=== PATIENT | female | born 1985 | race Asian ===

== ENCOUNTER 2018-08-24 00:45 | Inpatient (IN) | payer OTHER ==
[2018-08-24] MEDS ORDERED: AMPICILLIN - 2 GM in SODIUM CHLORIDE 100 ML IVPB ONE (02:00)
[2018-08-24 02:09] LABS: BASO % 0.5 % (0-2.0); EOS % 3.4 % (0-4.5); HEMATOCRIT 37.8 % (32.4-45.2); HEMOGLOBIN 12.6 GM/dL (10.7-15.3); LYMPH % 18.4 % (8-40); MCH 30.2 pg (25.7-33.7); MCHC 33.3 g/dl (32.0-36.0); MEAN CELL VOLUME 90.7 fl (80-96); MEAN PLT VOLUME 7.7 fl (7.5-11.1); MONO % 6.9 % (3.8-10.2); NEUT % 70.8 % (42.8-82.8); PLATELET COUNT 209 K/MM3 (134-434); RBC 4.17 M/mm3 (3.60-5.2); WHITE BLOOD COUNT 7.9 K/mm3 (4.0-10.0)
[2018-08-24 02:23] LABS: INR 1.04 (0.83-1.09); PROTHROMBIN TIME (PATIENT) 12.3 SEC (9.7-13.0)
[2018-08-24 02:26] LABS: ACTIVATED PTT 27.9 SECONDS (25.2-36.5)
[2018-08-24 02:29] LABS: CALCIUM 8.6 mg/dL (8.5-10.1); CREATININE 0.6 mg/dL (0.55-1.3); POTASSIUM 3.6 mmol/L (3.5-5.1)
[2018-08-24] MEDS ORDERED: TUBERCULIN PPD 5 TU/0.1ML SYRINGE (IN PATIENT USE ONLY) ID ONE (02:45)
[2018-08-24] MEDS ORDERED: DEXTROSE 5%-LACTATED RINGERS 1,000 ML IV SCH ×2 (02:45→06:45)
[2018-08-24 02:46] VITALS: BMI 25.0
[2018-08-24] MEDS ORDERED: AMPICILLIN SODIUM 2 GM VIAL ONE (02:48)
[2018-08-24] MEDS: AMPICILLIN - 1 GM in SODIUM CHLORIDE 100 ML IVPB SCH ×4 (06:20→17:30)
[2018-08-24] MEDS ORDERED: AMPICILLIN SODIUM 1 GM VIAL ONE ×4 (06:28→17:38)
[2018-08-24] MEDS ORDERED: BENZOCAINE 28 GM HEMORRHOIDAL OINTMENT TP PRN ×2 (06:37→18:16)
[2018-08-24] MEDS ORDERED: BENZOCAINE 20% 57 GM BOTTLE TP PRN ×2 (06:37→18:16)
[2018-08-24] MEDS ORDERED: BISACODYL 10 MG SUPP.RECT RC PRN ×2 (06:37→18:16)
[2018-08-24] MEDS ORDERED: WITCH HAZEL 50% (TUCKS) 40 PAD/JAR PAD TP PRN ×2 (06:37→18:16)
[2018-08-24] MEDS ORDERED: METHYLERGONOVINE MALEATE 0.2 MG/1 ML AMP IM PRN (06:37)
[2018-08-24] MEDS ORDERED: OXYTOCIN 20 UNITS in 0.9% NS 20 UNIT/1,000 ML INFUS.BAG IV SCH ×2 (06:45→18:30)
--- NOTE | 2018-08-24 06:50 | HP ---
Admitting History and Physical - Admission Chief Complaint: srom History of Present Illness: 33 y/o P1 at term comes with srom about 1230 am--has irregular contractions. She is gbs neg and pt of [facility]. 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: Alzheimer's, CVA, Dementia, Migraine, Multiple Sclerosis, Peripheral Neuropathy, Parkinson's, Seizure, Syncope, TIA, Vertigo, Other Cardiovascular: No: AFIB, Aneurysm, Aortic Insufficiency, Aortic Stenosis, CAD, CHF, Deep Vein Thrombosis, HTN, Hyperlipdemia, [place], Mitral Insufficiency, Mitral Stenosis, Murmur, Pulmonary Hypertension, Other Pulmonary: No: Asthma, Bronchitis, Cancer, COPD, O2 Dependent, Pneumonia, Previously Intubated, Pulmonary Embolus, Pulmonary Fibrosis, Sleep Apnea, Other Gastrointestinal: No: Ascites, Cancer, Constipation, Crohn's Disease, Diverticulitis, Diverticulosis, Esophageal Varices, Gastritis, GERD, GI Bleed, Hemorrhoids, Hiatal Hernia, Inflamatory Bowel Disease, Irritable Bowel Disease, Pancreatitis, Peptic Ulcer Disease, Ulcerative Colitis, Other Hepatobiliary: No: Cirrhosis, Cholelithiasis, Cholecystitis, Choledocholithiasis , Hepatitis A, Hepatitis B, Hepatitis C, Other Renal/: No: Renal Failure, Renal Inusuff, BPH, Cancer, Hematuria, Hemodialysis , Neurogenic Bladder, Renal Calculi, UTI, Other Reproductive: No: Ectopic , Endometriosis, Fibroids, PID, Polycystic Ovary Syndrome, Postmenopausal, Other ...: 2 ...Para: 1 Heme/Onc: Yes: Anemia, B12 Deficiency, Bleeding Disorder, Cancer, Current Chemotherapy, Current Radiation Therapy, Hemochromatosis, Hypercoaguable State, Myeloproliferative Synd, Sickle Cell Disease, Sickle Cell Trait, Thrombocytopenia, Other Infectious Disease: No: AIDS, C-Diff, Herpes Zoster, HIV, MRSA, STD's, Tuberculosis, VREF, Other Musculoskeletal: No: Bursitis, Chronic low back pain, Hemiparesis, Hemiplegia, Osteoarthritis, Paraplegia, Other - Smoking History Smoking history: Never smoked Have you smoked in the past 12 months: No - Alcohol/Substance Use Hx Alcohol Use: No Home Medications - Allergies Allergies/Adverse Reactions: Allergies Allergy/AdvReac Type Severity Reaction Status Date / Time No Known Allergies Allergy Verified 06/04/15 11:04 - Home Medications Home Medications: Ambulatory Orders Vitamins (Sjr) - 1 tab PO DAILY 08/30/14 Review of Systems - Review of Systems Constitutional: reports: No Symptoms Eyes: reports: No Symptoms HENT: reports: No Symptoms Neck: reports: No Symptoms Cardiovascular: reports: No Symptoms Respiratory: reports: No Symptoms Gastrointestinal: reports: No Symptoms Genitourinary: reports: No Symptoms Breasts: reports: No Symptoms Reported Musculoskeletal: reports: No Symptoms Integumentary: reports: No Symptoms Neurological: reports: No Symptoms Endocrine: reports: No Symptoms Physical Examination Vital Signs: Vital Signs Temperature 98.0 F 08/24/18 04:00 Pulse Rate 88 08/24/18 04:00 Respiratory Rate 20 08/24/18 04:00 Blood Pressure 105/58 L 08/24/18 04:00 O2 Sat by Pulse Oximetry (%) Eyes: Yes: WNL HENT: Yes: WNL Neck: Yes: WNL Cardiovascular: Yes: WNL Respiratory: Yes: WNL Gastrointestinal: Yes: WNL ...Rectal Exam: Yes: WNL Renal/: Yes: WNL Breast(s): Yes: WNL Musculoskeletal: Yes: WNL Labs: CBC, BMP 08/24/18 01:30 08/24/18 01:30 Assessment/Plan as above admit labs 5cm/-3 cat 1
[2018-08-24] MEDS ORDERED: OXYTOCIN 30 UNITS in 0.9% NS 30 UNIT/500 ML INFUS.BAG IVPB ONE (09:09)
[2018-08-24] MEDS ORDERED: OXYTOCIN 30 UNITS in 0.9% NS 30 UNIT/500 ML INFUS.BAG IVPB SCH (09:15)
--- NOTE | 2018-08-24 09:16 | PN ---
Ante-Partal Exam - Subjective Subjective: Patient evaluated for progression of labor. Grossly ruptured as per admitting provider. summary reviewed and informed consent obtained Vital Signs: Vital Signs Temperature 98.0 F 08/24/18 08:00 Pulse Rate 86 08/24/18 08:00 Respiratory Rate 18 08/24/18 08:00 Blood Pressure 102/60 08/24/18 08:00 O2 Sat by Pulse Oximetry (%) Bleeding: No Headache: No Visual changes: No Right upper quadrant pain: No - Contractions Contractions: Yes Regularity: Irregular Intensity: Mild Monitor Mode: External - Exam during Labor Heart Rate: 145 (recative) Category: I Monitor Accelerations: Present Monitor Decelerations: None Exam: Vaginal Dilatation (cm): 5 Effacement (%): 60 Amniotic Membrane Status: Ruptured (palpable membranes) Station: -3 Remarks: sutures palpated, asynclitic - Assessment/Plan Assessment/Plan: 33 y/o 40.5wks, PROM as per admission, GBS positive on abx prophylaxis, FHT reactive, late transfer of care, stable maternal status, Documentation reviewed, EFW [id number]. -Start pitocin -Re-evaluate once adequate contractions pattern
[2018-08-24] MEDS ORDERED: FENTANYL/BUPIVACAINE/NS/PF - PCEA - 50 ML DISP.SYRIN EP ONE (11:29)
[2018-08-24] MEDS ORDERED: LIDOCAINE HCL 1% PRESERVATIVE FREE - 30ML VIAL ONE (12:27)
[2018-08-24] MEDS ORDERED: OXYTOCIN 20 UNITS in 0.9% NS 20 UNIT/1,000 ML INFUS.BAG IV ONE ×2 (12:28→20:06)
[2018-08-24] MEDS ORDERED: ELECTROLYTE-148 SOLN 1,000 ML IV SCH (12:30)
[2018-08-24] MEDS ORDERED: FENTANYL/BUPIVACAINE/NS/PF - PCEA - 50 ML DISP.SYRIN EP SCH ×3 (13:15→15:15)
--- NOTE | 2018-08-24 16:15 | PN ---
Progress Note, Labor Vaginal Exam #2 Labor Exam Date: 08/24/18 Heart Rate (range): Cat II, intermittent late decelerations, improved Dilatation: 10 Effacement (%): 100 Amniotic Membrane Status: Ruptured Presentation: Vertex/Position Station: 0 Remarks: D/C pitocin, FHT improved to Cat I with discontinuation Oxygen, repositioning Labor down and reassess in one hour as she does not feel any pressure Ira Almonte MD
[2018-08-24] MEDS ORDERED: IBUPROFEN 600 MG TABLET (FP) PO PRN (18:16)
[2018-08-24] MEDS ORDERED: ACETAMINOPHEN 325 MG TABLET (FP) PO PRN (18:16)
--- NOTE | 2018-08-24 18:16 | PN ---
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 Epidural anesthesia. 40 week gestation. Spontaneous delivery of anterior shoulder. Infant placed on maternal abdomen. Cord clamped and cut. Apgars 9/9. Weight pending. Spontaneous delivery of intact placenta 3VC. Perineum inspected, small midline 2nd degree laceration repaired with 2-0 chromic after 2cc of lidocaine were injected. Fundus firm. EBL 250. Mother and baby doing well. Patricia Almonte MD
[2018-08-24] MEDS ORDERED: IBUPROFEN 600 MG TABLET (FP) PO ONE (20:32)
[2018-08-24] MEDS ORDERED: ACETAMINOPHEN 325 MG TABLET (FP) ONE ×2 (20:32→20:34)
[2018-08-24] MEDS: IBUPROFEN 600 MG TABLET (FP) PO PRN (20:40)
[2018-08-24] MEDS: ACETAMINOPHEN 325 MG TABLET (FP) PO PRN (20:40)
[2018-08-24] MEDS: FERROUS SO4 325 MG TABLET (FP) PO SCH (21:48)
[2018-08-25] MEDS: ACETAMINOPHEN 325 MG TABLET (FP) PO PRN ×4 (04:19→23:41)
[2018-08-25] MEDS: IBUPROFEN 600 MG TABLET (FP) PO PRN ×4 (04:20→23:40)
[2018-08-25 07:41] LABS: BASO % 0.6 % (0-2.0); EOS % 2.2 % (0-4.5); HEMATOCRIT 33.5 % (32.4-45.2); HEMOGLOBIN 11.3 GM/dL (10.7-15.3); LYMPH % 12.7 % (8-40); MCH 30.5 pg (25.7-33.7); MCHC 33.6 g/dl (32.0-36.0); MEAN CELL VOLUME 90.7 fl (80-96); MEAN PLT VOLUME 7.5 fl (7.5-11.1); MONO % 6.7 % (3.8-10.2); NEUT % 77.8 % (42.8-82.8); PLATELET COUNT 181 K/MM3 (134-434); RBC 3.69 M/mm3 (3.60-5.2); RDW 13.6 % (11.6-15.6); WHITE BLOOD COUNT 9.9 K/mm3 (4.0-10.0)
[2018-08-25] MEDS: PRENATAL VITAMINS W/ FOLIC ACID TABLET (FP) PO SCH (09:41)
[2018-08-25] MEDS: FERROUS SO4 325 MG TABLET (FP) PO SCH ×2 (09:41→23:40)
--- NOTE | 2018-08-25 10:25 | PN ---
Post Progress Note Post Day: 1 Type of Delivery: Vital Signs: Vital Signs Temperature 97.7 F 08/25/18 09:00 Pulse Rate 83 08/25/18 09:00 Respiratory Rate 16 08/25/18 09:00 Blood Pressure 91/68 08/25/18 09:00 O2 Sat by Pulse Oximetry (%) 100 08/24/18 16:00 Uterus: Yes: Fundus below umbilicus Abdomen/GI: Yes: Abdomen soft Lochia: Yes: Rubra Lochia, amount: Small Extremities: Yes: Calves non-tender Perineum: Yes: Laceration Activity: Ambulating - Labs Labs: CBC WBC 9.9 K/mm3 (4.0-10.0) 08/25/18 06:40 RBC 3.69 M/mm3 (3.60-5.2) 08/25/18 06:40 Hgb 11.3 GM/dL (10.7-15.3) 08/25/18 06:40 Hct 33.5 % (32.4-45.2) 08/25/18 06:40 MCV 90.7 fl (80-96) 08/25/18 06:40 MCH 30.5 pg (25.7-33.7) 08/25/18 06:40 MCHC 33.6 g/dl (32.0-36.0) 08/25/18 06:40 RDW 13.6 % (11.6-15.6) 08/25/18 06:40 Plt Count 181 K/MM3 (134-434) 08/25/18 06:40 MPV 7.5 fl (7.5-11.1) 08/25/18 06:40 Absolute Neuts (auto) 7.7 K/mm3 (1.5-8.0) 08/25/18 06:40 Neutrophils % 77.8 % (42.8-82.8) 08/25/18 06:40 Lymphocytes % 12.7 % (8-40) D 08/25/18 06:40 Monocytes % 6.7 % (3.8-10.2) 08/25/18 06:40 Eosinophils % 2.2 % (0-4.5) 08/25/18 06:40 Basophils % 0.6 % (0-2.0) 08/25/18 06:40 Nucleated RBC % 0 % (0-0) 08/25/18 06:40 Assessment/Plan 33yo s/p , PPD#1 Routine PP care OOB, ambulate Labs reviewed Anticipate d/c to home PPD#2 Ira Almonte MD
[2018-08-25] MEDS ORDERED: SENNOSIDES/DOCUSATE COMBO (SENNA PLUS) TABLET (UD) PO PRN ×2 (22:00)
[2018-08-26] MEDS: PRENATAL VITAMINS W/ FOLIC ACID TABLET (FP) PO SCH (10:09)
[2018-08-26] MEDS: FERROUS SO4 325 MG TABLET (FP) PO SCH (10:09)
--- NOTE | 2018-08-26 11:01 | DS ---
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 Vital Signs: Vital Signs Temperature 98.0 F 08/25/18 21:16 Pulse Rate 101 H 08/25/18 21:16 Respiratory Rate 20 08/25/18 21:16 Blood Pressure 104/62 08/25/18 21:16 O2 Sat by Pulse Oximetry (%) 100 08/24/18 16:00 Constitutional: Yes: Well Nourished, No Distress, Calm Eyes: Yes: WNL, Conjunctiva Clear, EOM Intact HENT: Yes: WNL, Atraumatic, Normocephalic Neck: Yes: WNL, Supple, Trachea Midline Cardiovascular: Yes: WNL, Regular Rate and Rhythm Respiratory: Yes: WNL, Regular, CTA Bilaterally Gastrointestinal: Yes: WNL ...Rectal Exam: Yes: WNL Renal/: Yes: WNL ....Post : Yes: Uterus firm, Uterus non-tender, Slight lochia rubra Breast(s): Yes: WNL Musculoskeletal: Yes: WNL Extremities: Yes: WNL Edema: No Integumentary: Yes: WNL Neurological: Yes: WNL, Alert, Oriented ...Motor Strength: WNL Psychiatric: Yes: WNL, Alert, Oriented Labs: CBC, BMP 08/25/18 06:40 08/24/18 01:30 Delivery - Delivery Vaginal Delivery: Spontaneous Type of Anesthesia: Local, Epidural Episiotomy/Laceration: Midline, 2nd degree EBL (cc): 300 Delivery, Single - Stages of Labor Date 1st Stage Initiatied: 08/24/18 Time 1st Stage Initiated: 01:00 Date 2nd Stage Initiated: 08/24/18 Time 2nd Stage Initiated: 16:00 Date of Delivery: 08/24/18 Time of Delivery: 17:59 Time Placenta Delivered: 18:00 Placenta: Yes: Spontaneous - Condition of Infant Cement Or 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 Finishing 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/Stock Patch Sawyer Present: No Gender: Female Weight: 7 lb 6 oz Position: Left, OA Total Hours ROM (Hrs/Mins): 18 hrs - 1 Minute Total Score: 9 5 Minutes Total Score: 9 - [place] Feeding Plan Initial Plan: Exclusive throughout hospitalization Discharge Summary Reason For Visit: LABOR ADMIT Procedures: Principal: Hospital Course: no complication Condition: Stable - Instructions Diet, Activity, Other Instructions: Regular Diet Follow up in the office in 4-6 weeks Referrals: Patricia Almonte MD [Staff Physician] - Disposition: HOME - Home Medications Comprehensive Discharge Medication List: Ambulatory Orders Vitamins (Sjr) - 1 tab PO DAILY 08/30/14 Ibuprofen [Motrin -] 600 mg PO QID PRN #28 tablet 08/25/18
[2018-08-26 12:08] VITALS: BP 118/76; PULSE 92; TEMP 98.1
== END 2018-08-26 10:45 | disposition home or self-care (01) | DRG 807 ==
LOC: JLDR 00:45 → J3W 20:48
PROVIDERS: ADMIT Obstetrics & Gynecology; ATTEND Obstetrics & Gynecology
PROC: 0KQM0ZZ Repair Perineum Muscle, Open Approach (ICD-10-PCS; principal; 2018-08-24)
PROC: 10E0XZZ Delivery of Products of Conception, External Approach (ICD-10-PCS; 2018-08-24)
DX: O48.0 Post-term pregnancy (principal); Z37.0 Single live birth; O99.824 Streptococcus B carrier state complicating childbirth; O70.1 Second degree perineal laceration during delivery; Z3A.40 40 weeks gestation of pregnancy
CPT/HCPCS: 36415; 59025; 59409; 80048; 85025; 85610; 85730; 86593; 86850; 86900; 86901; 87389

== ENCOUNTER 2020-08-21 01:15 | Inpatient (IN) | payer OTHER ==
[2020-08-21] MEDS ORDERED: ELECTROLYTE-148 SOLN 500 ML IV ONE (02:26)
[2020-08-21] MEDS ORDERED: CITRIC ACID/SODIUM CITRATE 30 ML UNIT-DOSE CUP PO ONE (02:26)
[2020-08-21 02:30] VITALS: BMI 24.0
[2020-08-21] MEDS ORDERED: ELECTROLYTE-148 SOLN 1,000 ML IV SCH (02:30)
[2020-08-21 02:43] LABS: BASO % 0.4 % (0-2.0); EOS % 1.5 % (0-4.5); HEMATOCRIT 36.2 % (32.4-45.2); HEMOGLOBIN 12.5 GM/dL (10.7-15.3); MCH 31.3 pg (25.7-33.7); MCHC 34.6 g/dl (32.0-36.0); MEAN CELL VOLUME 90.6 fl (80-96); MEAN PLT VOLUME 8.2 fl (7.5-11.1); MONO % 6.9 % (3.8-10.2); NEUT % 70.2 % (42.8-82.8); PLATELET COUNT 174 K/MM3 (134-434); RDW 13.7 % (11.6-15.6); WHITE BLOOD COUNT 6.1 K/mm3 (4.0-10.0)
[2020-08-21 02:50] LABS: INR 1.1 (0.83-1.09); PROTHROMBIN TIME (PATIENT) 13.5 SEC (9.7-13.0)
[2020-08-21 02:57] LABS: BLOOD UREA NITROGEN 9.9 mg/dL (7-18); CALCIUM 8.5 mg/dL (8.5-10.1)
[2020-08-21] MEDS ORDERED: OXYTOCIN 20 UNITS in 0.9% NS 20 UNIT/1,000 ML INFUS.BAG IV ONE (03:22)
[2020-08-21] MEDS ORDERED: ONDANSETRON 4 MG/2 ML VIAL IVPUSH PRN (03:41)
[2020-08-21] MEDS ORDERED: morphine SULFATE/PF 0.5 MG/ML (2cc Syringe - QUVA) ONE (03:46)
[2020-08-21] MEDS ORDERED: ceFAZolin SODIUM 1 GM VIAL ONE (04:03)
[2020-08-21] MEDS ORDERED: ONDANSETRON 4 MG/2 ML VIAL ONE (04:05)
[2020-08-21] MEDS ORDERED: OXYTOCIN 10 UNITS/ML VIAL ONE (04:11)
[2020-08-21 04:12] LABS: CREATININE 0.5 mg/dL (0.55-1.3)
[2020-08-21] MEDS ORDERED: oxyCODONE HCL 5 MG TABLET PO PRN (04:57)
[2020-08-21] MEDS ORDERED: METHYLERGONOVINE MALEATE 0.2 MG/1 ML AMP IM PRN (04:57)
[2020-08-21 05:21] LABS: CORD HCO3 28.5 mmHg (20-29); CORD PCO2 63.1 mmHg (30-78); CORD pH 7.272 (7.14-7.44)
[2020-08-21 05:22] LABS: CORD BASE EXCESS -0.1 mmol/L (0-2); CORD HCO3 26.2 mmHg (20-29); CORD PCO2 48.2 mmHg (30-78); CORD pH 7.353 (7.14-7.44)
[2020-08-21] MEDS: IBUPROFEN 800 MG/8 ML IJ IVPB PRN ×2 (08:03→21:06)
[2020-08-21] MEDS: CEFAZOLIN 1 GM/D5W 1 GM/50 ML BAG IVPB SCH ×2 (09:31→18:16)
[2020-08-21] MEDS: ENOXAPARIN NA (PORCINE) 40 MG/0.4 ML DISP.SYRIN SQ SCH (21:05)
[2020-08-22] MEDS: CEFAZOLIN 1 GM/D5W 1 GM/50 ML BAG IVPB SCH (02:06)
[2020-08-22] MEDS ORDERED: BISACODYL 10 MG SUPP.RECT RC PRN (04:57)
[2020-08-22] MEDS: IBUPROFEN 800 MG/8 ML IJ IVPB PRN (05:35)
[2020-08-22 08:54] LABS: BASO % 0.2 % (0-2.0); EOS % 1.7 % (0-4.5); HEMATOCRIT 31.4 % (32.4-45.2); HEMOGLOBIN 10.9 GM/dL (10.7-15.3); LYMPH % 13.7 % (8-40); MCH 31.5 pg (25.7-33.7); MCHC 34.8 g/dl (32.0-36.0); MEAN CELL VOLUME 90.8 fl (80-96); MEAN PLT VOLUME 7.8 fl (7.5-11.1); MONO % 5.9 % (3.8-10.2); NEUT % 78.5 % (42.8-82.8); PLATELET COUNT 150 K/MM3 (134-434); RBC 3.46 M/mm3 (3.60-5.2); RDW 13.3 % (11.6-15.6); WHITE BLOOD COUNT 8.6 K/mm3 (4.0-10.0)
[2020-08-22] MEDS: ENOXAPARIN NA (PORCINE) 40 MG/0.4 ML DISP.SYRIN SQ SCH (09:46)
[2020-08-22] MEDS: PRENATAL VITAMINS W/ FOLIC ACID TABLET (FP) PO SCH (09:46)
[2020-08-22] MEDS: FERROUS SO4 325 MG TABLET (FP) PO SCH ×2 (09:46→21:30)
[2020-08-22] MEDS: IBUPROFEN 600 MG TABLET (FP) PO PRN ×2 (13:57→21:32)
[2020-08-22] MEDS: SIMETHICONE 80 MG TAB.CHEW (FP) PO PRN ×2 (13:58→21:30)
[2020-08-22] MEDS: ACETAMINOPHEN 325 MG TABLET (FP) PO PRN ×2 (13:58→21:30)
[2020-08-22] MEDS: SENNOSIDES/DOCUSATE COMBO (SENNA PLUS) TABLET (UD) PO PRN (21:31)
[2020-08-22] MEDS: OXYTOCIN 20 UNITS in 0.9% NS 20 UNIT/1,000 ML INFUS.BAG IV SCH (23:16)
[2020-08-23] MEDS: PRENATAL VITAMINS W/ FOLIC ACID TABLET (FP) PO SCH (10:07)
[2020-08-23] MEDS: ENOXAPARIN NA (PORCINE) 40 MG/0.4 ML DISP.SYRIN SQ SCH (10:07)
[2020-08-23] MEDS: FERROUS SO4 325 MG TABLET (FP) PO SCH ×2 (10:07→22:24)
[2020-08-23] MEDS: SIMETHICONE 80 MG TAB.CHEW (FP) PO PRN ×2 (10:07→22:23)
[2020-08-23] MEDS: ACETAMINOPHEN 325 MG TABLET (FP) PO PRN ×2 (10:10→22:24)
[2020-08-23] MEDS: IBUPROFEN 600 MG TABLET (FP) PO PRN ×2 (10:11→22:24)
[2020-08-23] MEDS: SENNOSIDES/DOCUSATE COMBO (SENNA PLUS) TABLET (UD) PO PRN (22:24)
[2020-08-24 07:48] LABS: BASO % 0.3 % (0-2.0); EOS % 2.1 % (0-4.5); HEMATOCRIT 30.5 % (32.4-45.2); HEMOGLOBIN 10.4 GM/dL (10.7-15.3); LYMPH % 21.4 % (8-40); MCH 31.3 pg (25.7-33.7); MCHC 34.1 g/dl (32.0-36.0); MEAN CELL VOLUME 91.8 fl (80-96); MEAN PLT VOLUME 7.7 fl (7.5-11.1); MONO % 6.5 % (3.8-10.2); NEUT % 69.7 % (42.8-82.8); PLATELET COUNT 175 K/MM3 (134-434); RBC 3.32 M/mm3 (3.60-5.2); RDW 13.7 % (11.6-15.6); WHITE BLOOD COUNT 5.1 K/mm3 (4.0-10.0)
[2020-08-24] MEDS: ENOXAPARIN NA (PORCINE) 40 MG/0.4 ML DISP.SYRIN SQ SCH (09:38)
[2020-08-24] MEDS: FERROUS SO4 325 MG TABLET (FP) PO SCH (09:38)
[2020-08-24] MEDS: PRENATAL VITAMINS W/ FOLIC ACID TABLET (FP) PO SCH (09:39)
[2020-08-24 10:44] VITALS: BP 110/65; PULSE 77; TEMP 97.7
== END 2020-08-24 12:35 | disposition home or self-care (01) | DRG 540 ==
LOC: JDEL 01:15 → JLDR 01:45 → J3W 06:10
PROVIDERS: ADMIT Obstetrics & Gynecology; ATTEND Obstetrics & Gynecology
PROC: 10D00Z1 Extraction of Products of Conception, Low, Open Approach (ICD-10-PCS; principal; 2020-08-21)
DX: O42.02 Full-term premature rupture of membranes, onset of labor within 24 hours of rupture (principal); O32.8XX0 Maternal care for other malpresentation of fetus, not applicable or unspecified; O34.13 Maternal care for benign tumor of corpus uteri, third trimester; D25.2 Subserosal leiomyoma of uterus; Z3A.39 39 weeks gestation of pregnancy; Z37.0 Single live birth
CPT/HCPCS: 36415; 36600; 80048; 82803; 85025; 85610; 85730; 86780; 86850; 86900; 86901; 88307-TC; C9803; U0003; U0005

== ENCOUNTER 2023-04-22 08:45 | Emergency (ER) | payer OTHER ==
[2023-04-22 08:57] VITALS: BP 102/63; PULSE 95; RESP 18; TEMP 99; BMI 18.5
[2023-04-22 11:00] LABS: URINE APPEARANCE CLEAR; URINE BILIRUBIN NEGATIVE (NEGATIVE); URINE COLOR YELLOW; URINE GLUCOSE (UA) NEGATIVE (NEGATIVE); URINE KETONE NEGATIVE (NEGATIVE); URINE LEUK ESTERASE NEGATIVE (NEGATIVE); URINE NITRITE NEGATIVE (NEGATIVE); URINE PROTEIN NEGATIVE (NEGATIVE); URINE UROBILINOGEN 0.2 mg/dL (0.2-1.0)
[2023-04-22 11:00] LABS: BASO % 0.5 % (0-2.0); EOS % 5.2 % (0-4.5); HEMATOCRIT 38.3 % (32.4-45.2); HEMOGLOBIN 12.7 GM/dL (10.7-15.3); LYMPH % 13.6 % (8-40); MCH 27.1 pg (25.7-33.7); MCHC 33.2 g/dl (32.0-36.0); MEAN CELL VOLUME 81.7 fl (80-96); MEAN PLT VOLUME 8.5 fl (7.5-11.1); MONO % 6.4 % (3.8-10.2); NEUT % 74.3 % (42.8-82.8); PLATELET COUNT 213 10^3/uL (134-434); RBC 4.69 M/mm3 (3.60-5.2); RDW 16.9 % (11.6-15.6); WHITE BLOOD COUNT 7.2 K/mm3 (4.0-10.0)
[2023-04-22 11:25] LABS: POTASSIUM 4.3 mmol/L (3.5-5.1)
[2023-04-22 11:26] LABS: CALCIUM 8.6 mg/dL (8.5-10.1)
[2023-04-22 11:30] LABS: CREATININE 0.6 mg/dL (0.55-1.3)
== END 2023-04-22 12:20 | disposition home or self-care (01) ==
LOC: JER 08:45
DX: O23.591 Infection of other part of genital tract in pregnancy, first trimester (principal); N76.0 Acute vaginitis; O26.891 Other specified pregnancy related conditions, first trimester; R10.30 Lower abdominal pain, unspecified; R53.1 Weakness; R53.83 Other fatigue; Z3A.01 Less than 8 weeks gestation of pregnancy
CPT/HCPCS: 36415; 76801-TC; 80048; 81003; 84702; 84703; 85025; 86850; 86900; 86901; 87070; 87077; 87086; 87205; 87491; 87591; 87661; 99284-25

== ENCOUNTER 2023-11-24 08:36 | Inpatient (IN) | payer OTHER ==
[2023-11-24 09:39] LABS: BASO % 0.4 % (0-2.0); EOS % 1.8 % (0-4.5); HEMATOCRIT 36.4 % (32.4-45.2); HEMOGLOBIN 12.5 GM/dL (10.7-15.3); LYMPH % 16.5 % (8-40); MCH 31.3 pg (25.7-33.7); MCHC 34.3 g/dl (32.0-36.0); MEAN CELL VOLUME 91.3 fl (80-96); MEAN PLT VOLUME 8.5 fl (7.5-11.1); MONO % 5.1 % (3.8-10.2); NEUT % 76.2 % (42.8-82.8); PLATELET COUNT 178 10^3/uL (134-434); RBC 3.98 M/mm3 (3.60-5.2); RDW 14.2 % (11.6-15.6)
[2023-11-24 09:51] LABS: INR 1.05 (0.83-1.09); PROTHROMBIN TIME (PATIENT) 12.1 SEC (9.7-13.0)
[2023-11-24 09:54] LABS: ACTIVATED PTT 27.8 SECONDS (25.2-36.5)
[2023-11-24 09:57] LABS: CHLORIDE 108 mmol/L (98-107); POTASSIUM 3.8 mmol/L (3.5-5.1); SODIUM 139 mmol/L (136-145)
[2023-11-24 09:58] LABS: CALCIUM 8.8 mg/dL (8.5-10.1)
[2023-11-24 09:59] LABS: ANION GAP 8 mmol/L (4-13); BLOOD UREA NITROGEN 10.1 mg/dL (7-18); CO2 23 mmol/L (21-32); GLUCOSE,RANDOM 78 mg/dL (74-106)
[2023-11-24] MEDS ORDERED: LACTATED RINGERS SOLUTION 1,000 ML/1,000 ML INFUS.BAG IV SCH (10:00)
[2023-11-24] MEDS: CITRIC ACID/SODIUM CITRATE 30 ML UNIT-DOSE CUP PO ONE (10:00)
[2023-11-24 10:02] LABS: CREATININE 0.5 mg/dL (0.55-1.3)
[2023-11-24] MEDS ORDERED: METOCLOPRAMIDE HCL INJECTION 10 MG/2 ML VIAL ONE (10:37)
[2023-11-24] MEDS ORDERED: DEXAMETHASONE SOD PHOSPHATE 4 MG/1 ML VIAL ONE (10:37)
[2023-11-24] MEDS ORDERED: ceFAZolin SODIUM 1 GM VIAL ONE (10:37)
[2023-11-24] MEDS ORDERED: ONDANSETRON 4 MG/2 ML VIAL ONE (10:37)
[2023-11-24] MEDS ORDERED: OXYTOCIN 10 UNITS/ML VIAL ONE (10:37)
[2023-11-24] MEDS ORDERED: KETOROLAC TROMETHAMINE 30 MG/1 ML VIAL ONE (10:37)
[2023-11-24] MEDS ORDERED: FENTANYL CITRATE/PF 50 MCG/ML VIAL ONE (11:14)
[2023-11-24] MEDS ORDERED: morphine SULFATE/PF 1 MG/2 ML (2cc Syringe - QUVA) ONE (11:15)
[2023-11-24] MEDS: ELECTROLYTE-148 SOLN 1,000 ML IV SCH (12:55)
[2023-11-24] MEDS: OXYTOCIN 20 UNITS in 0.9% NS 20 UNIT/1,000 ML INFUS.BAG IV SCH (13:00)
[2023-11-24 13:05] VITALS: BMI 23.9
[2023-11-24 13:24] LABS: HIV INTERPRETATION NEGATIVE (NEGATIVE)
[2023-11-24 13:40] LABS: VENOUS BASE EXCESS -0.9 mmol/L (-2-2); VENOUS O2 SATURATION 30.7 % (70-80); VENOUS PCO2 49.3 mmHg (38-52); VENOUS PH 7.334 (7.310-7.410)
[2023-11-24] MEDS ORDERED: OXYTOCIN 20 UNITS in 0.9% NS 20 UNIT/1,000 ML INFUS.BAG IV ONE (13:45)
[2023-11-24] MEDS ORDERED: METHYLERGONOVINE MALEATE 0.2 MG/1 ML AMP IM PRN (13:50)
[2023-11-24 13:51] LABS: CORD BASE EXCESS -0.8 mmol/L (0-2); CORD HCO3 24.3 mmHg (20-29); CORD PCO2 41.9 mmHg (30-78); CORD pH 7.381 (7.14-7.44)
[2023-11-25] MEDS ORDERED: oxyCODONE HCL 5 MG TABLET PO PRN ×2 (01:50)
[2023-11-25] MEDS: ACETAMINOPHEN 325 MG TABLET (FP) PO PRN (06:21)
[2023-11-25 07:58] LABS: BASO % 0.3 % (0-2.0); EOS % 0.5 % (0-4.5); HEMATOCRIT 34.6 % (32.4-45.2); HEMOGLOBIN 11.8 GM/dL (10.7-15.3); LYMPH % 11.7 % (8-40); MCH 31.3 pg (25.7-33.7); MEAN PLT VOLUME 8.8 fl (7.5-11.1); MONO % 5.1 % (3.8-10.2); NEUT % 82.4 % (42.8-82.8); PLATELET COUNT 161 10^3/uL (134-434); RBC 3.77 M/mm3 (3.60-5.2); RDW 13.8 % (11.6-15.6); WHITE BLOOD COUNT 9.4 K/mm3 (4.0-10.0)
[2023-11-25] MEDS: PRENATAL VITAMINS W/ FOLIC ACID TABLET (FP) PO SCH (09:03)
[2023-11-25] MEDS: ENOXAPARIN NA (PORCINE) 40 MG/0.4 ML DISP.SYRIN SQ SCH (09:03)
[2023-11-25] MEDS ORDERED: BISACODYL 10 MG SUPP.RECT RC PRN (13:50)
[2023-11-25] MEDS: IBUPROFEN 600 MG TABLET (FP) PO PRN (15:37)
[2023-11-26] MEDS: SIMETHICONE 80 MG TAB.CHEW (FP) PO PRN (21:01)
[2023-11-27 07:44] LABS: BASO % 0.2 % (0-2.0); EOS % 2.9 % (0-4.5); HEMATOCRIT 32.7 % (32.4-45.2); LYMPH % 17.4 % (8-40); MCH 31.2 pg (25.7-33.7); MCHC 33.5 g/dl (32.0-36.0); MEAN CELL VOLUME 92.9 fl (80-96); MEAN PLT VOLUME 8.4 fl (7.5-11.1); MONO % 4.5 % (3.8-10.2); PLATELET COUNT 158 10^3/uL (134-434); RBC 3.52 M/mm3 (3.60-5.2); RDW 14.1 % (11.6-15.6); WHITE BLOOD COUNT 5.5 K/mm3 (4.0-10.0)
[2023-11-27 08:01] VITALS: BP 109/71; PULSE 81; RESP 18; TEMP 98.1
== END 2023-11-27 14:20 | disposition home or self-care (01) | DRG 540 ==
LOC: JLDR 08:36 → J3W 15:25
PROVIDERS: ADMIT Obstetrics & Gynecology; ATTEND Obstetrics & Gynecology
PROC: 10D00Z1 Extraction of Products of Conception, Low, Open Approach (ICD-10-PCS; principal; 2023-11-24)
DX: O32.2XX0 Maternal care for transverse and oblique lie, not applicable or unspecified (principal); O36.5930 Maternal care for other known or suspected poor fetal growth, third trimester, not applicable or unspecified; O34.219 Maternal care for unspecified type scar from previous cesarean delivery; Z3A.38 38 weeks gestation of pregnancy; Z37.0 Single live birth
CPT/HCPCS: 36415; 36600; 59409; 80048; 82803; 85025; 85610; 85730; 86780; 86803; 86850; 86900; 86901; 86922; 87389; 88307-TC